=== PATIENT | male | born 1985 | race American Indian/Alaskan Native ===

== ENCOUNTER 2019-11-12 11:11 | Emergency (ER) | payer SELFPAY ==
[2019-11-12 11:18] VITALS: BP 231/144
--- NOTE | 2019-11-12 11:27 | Emergency Department Report ---
Blank Doc - Documentation Documentation: 33-year-old male that presents with HTN. Was sent by PCP. This initial assessment/diagnostic orders/clinical plan/treatment(s) is/are subject to change based on patient's health status, clinical progression and re- assessment by fellow clinical providers in the ED. Further treatment and workup at subsequent clinical providers discretion. Patient/guardians urged not to elope from the ED as their condition may be serious if not clinically assessed and managed. Initial orders include: 1- Patient sent to [facility] for further evaluation and treatment 2- EKG 3- Labs
== END 2019-11-12 11:47 | disposition left against medical advice (07) ==
LOC: ED 11:11
DX: I10 Essential (primary) hypertension (principal); Z53.21 Procedure and treatment not carried out due to patient leaving prior to being seen by health care provider